=== PATIENT | male | born 1995 ===

== ENCOUNTER 2017-11-18 06:11 | Emergency (ER) | payer OTHER ==
[2017-11-18 06:19] VITALS: BMI 23.3
--- NOTE | 2017-11-18 06:37 | ED PDOC ---
Arrival/HPI <Alberta Sauceda - Last Filed: 11/18/17 12:55> - General Historian: Patient - History of Present Illness Time/Duration: Other (this morning) Symptom Onset: Gradual Symptom Course: Unchanged Activities at Onset: Light Context: Home <SamsonLowell - Last Filed: 11/21/17 09:27> - General Chief Complaint: Shortness Of Breath Time Seen by Provider: 11/18/17 06:34 - History of Present Illness Narrative History of Present Illness (Text): 11/18/17 06:34 Epifanio Cota is a 21 year old male, who denies any significant past medical history, who presents to the Emergency department accompanied by relative complaining of left-sided chest pain since this morning. Via relative acting as senior specialist, patient notes pain is worse with palpation of the area and movement. Patient also complaining of difficulty breathing. Patient denies any fever, chills, nausea, vomiting, diarrhea, urinary symptoms, back pain, neck pain, headache, dizziness, or any other complaints. (Lowell Davies) Past Medical History - Provider Review Nursing Documentation Reviewed: Yes - Psychiatric Hx Psychophysiologic Disorder: No Hx Substance Use: No - Anesthesia Hx Anesthesia: No Hx Anesthesia Reactions: No Hx Malignant Hyperthermia: No <Lowell Davies - Last Filed: 11/21/17 09:27> Family/Social History - Physician Review Nursing Documentation Reviewed: Yes Family/Social History: Unknown Family HX Smoking Status: Never Smoked Hx Alcohol Use: No Hx Substance Use: No <Lowell Davies - Last Filed: 11/21/17 09:27> Allergies/Home Meds <Alberta Sauceda - Last Filed: 11/18/17 12:55> <Lowell Davies - Last Filed: 11/21/17 09:27> Allergies/Adverse Reactions: Allergies No Known Allergies Allergy (Verified 11/18/17 06:23) Review of Systems - Physician Review All systems were reviewed & negative as marked: Yes - Review of Systems Constitutional: Normal. absent: Fevers Eyes: Normal ENT: Normal Respiratory: absent: Cough Cardiovascular: Chest Pain Gastrointestinal: Normal. absent: Abdominal Pain, Diarrhea, Nausea, Vomiting Genitourinary Male: Normal. absent: Dysuria, Frequency, Hematuria, Urinary Output Changes Musculoskeletal: Normal. absent: Back Pain, Neck Pain Skin: Normal. absent: Rash Neurological: Normal. absent: Headache, Dizziness Endocrine: Normal Hemo/Lymphatic: Normal Psychiatric: Normal <Lowell Davies - Last Filed: 11/21/17 09:27> Physical Exam Vital Signs Reviewed: Yes Temperature: Afebrile Blood Pressure: Normal Pulse: Regular Respiratory Rate: Normal Appearance: Positive for: Well-Appearing, Non-Toxic, Comfortable Pain Distress: None Mental Status: Positive for: Alert and Oriented X 3 - Systems Exam Head: Present: Atraumatic, Normocephalic Pupils: Present: PERRL Extroacular Muscles: Present: EOMI Conjunctiva: Present: Normal Mouth: Present: Moist Mucous Membranes Neck: Present: Normal Range of Motion Respiratory/Chest: Present: Clear to Auscultation, Good Air Exchange, Tender to Palpation (Tender to left chest wall). No: Respiratory Distress, Accessory Muscle Use Cardiovascular: Present: Regular Rate and Rhythm, Normal S1, S2. No: Murmurs Abdomen: Present: Normal Bowel Sounds. No: Tenderness, Distention, Peritoneal Signs Back: Present: Normal Inspection Upper Extremity: Present: Normal Inspection. No: Cyanosis, Edema Lower Extremity: Present: Normal Inspection. No: Edema Neurological: Present: GCS=15, CN II-XII Intact, Speech Normal Skin: Present: Warm, Dry, Normal Color. No: Rashes Psychiatric: Present: Alert, Oriented x 3, Normal Insight, Normal Concentration <Lowell Davies - Last Filed: 11/21/17 09:27> Vital Signs Temp Pulse Resp BP Pulse Ox 11/18/17 11:20 98.5 F 69 18 98/47 L 100 11/18/17 07:59 98.5 F 78 18 114/71 100 11/18/17 06:45 98.1 F 95 H 18 126/65 100 11/18/17 06:20 18 100 Medical Decision Making <Alberta Sauceda - Last Filed: 11/18/17 12:55> - EKG Interpretation Interpreted by ED Physician: Yes Type: 12 lead EKG - Transfer of Care Patient signed out to Dr:: masoud lees and re eval and dispo <Lowell Davies - Last Filed: 11/21/17 09:27> ED Course and Treatment: 11/18/17 07:00 Patient signed out to me by Dr. Davies. 11/18/17 11:[address]: Creator : Marco A Tovar MD FINDINGS: LUNGS: There is a large heterogeneous mass in the anteromedial aspect left upper lobe which appears to arise from the anterior mediastinum extend laterally into the left upper lung field. This lesion measures approximately 11.9 cm x 8.15 cm trans x 7.0 cm AP. The lesion exhibits areas of low attenuation extends from the prevascular space at high-level. Lesion appears to exert some mass effect left anterolateral border of the pulmonary trunk, paid such as proximal aspect of the left main pulmonary artery and left pulmonary vein. Findings are of uncertain etiology though differential diagnosis would include teratoma, lymphoma or thymoma. . Lesion of thyroid origin less likely as the thyroid gland exhibits location, size and enhancement pattern with no obvious substernal thyroid tissue seen. . MEDIASTINUM: As above. No significant hilar adenopathy. No evidence of significant precarinal or para tracheal adenopathy. Heart size is within range of normal. No significant pericardial effusion. The ascending thoracic aorta measures approximately 2.14 cm and descending thoracic aorta measures approximately 1.8 cm. Central airways are midline and patent. No endoluminal lesions are identified. PLEURA:No effusion or pneumothorax. BONES:No fracture. No destructive lesion. UPPER ABDOMEN:Note made of an incompletely visualized elliptical shaped cyst measuring 2.1 x 1.6 cm upper pole left kidney OTHER FINDINGS:None. IMPRESSION: Large mass lesion in the left anterolateral soto thorax which appears to arise from the anterior mediastinum and extend peripherally into the left upper lobe the lesion exhibits heterogeneous attenuation/ enhancement. Rule out teratoma, lymphoma or thymoma. . Thyroid origin lesion would be less likely as detailed above. See above discussion for additional details and findings. Findings discussed with Dr. Sauceda at approximately 10:05 a.m. with written down and read back verification. 11/18/17 11:[address] Cook at [facility] who agrees to patient in consultation. Provided patient and his family with contact info and emphasized to contact Dr. Cook for follow up [phone]. (Alberta Sauceda) 11/18/17 06:34 Impression: 21 year old male complaining of left-sided chest pain, worse with movement/ palpating the area, with difficulty breathing. Plan: -- EKG -- Chest X-ray -- Motrin -- Reassess and disposition Progress Notes: Reviewed EKG, NSR at 92 bpm. Sinus arrhythmia. No acute changes. (Lowell Davies) - Lab Interpretations Lab Results: 11/18/17 07:55 11/18/17 07:55 Lab Results 11/18/17 07:55: Sodium 138, Potassium 3.5 L, Chloride 102, Carbon Dioxide 24, Anion Gap 14, BUN 15, Creatinine 0.8, Est GFR ( Amer) > 60, Est GFR (Non- Af Amer) > 60, Random Glucose 120 H, Calcium 9.3, Total Bilirubin 0.7, AST 25, ALT 23, Alkaline Phosphatase 148 H, Total Protein 7.6, Albumin 4.3, Globulin 3.4 , Albumin/Globulin Ratio 1.3 11/18/17 07:55: WBC 11.2 H, RBC 4.38, Hgb 12.9 L, Hct 38.3 L, MCV 87.4, MCH 29.5 , MCHC 33.7, RDW 13.8, Plt Count 226, MPV 8.8, Gran % 80.8 H, Lymph % (Auto) 9.8 L, Crook % (Auto) 9.2 H, Eos % (Auto) 0.1 L, Baso % (Auto) 0.1, Gran # 9.05 H , Lymph # 1.1 L, Crook # 1.0 H, Eos # 0.0, Baso # 0.01 - RAD Interpretation Radiology Orders: 11/18/17 06:39 CHEST TWO VIEWS (PA/LAT) [RAD] Stat 11/18/17 07:32 CHEST W/CONTRAST [CT] Stat - Medication Orders Current Medication Orders: Discontinued Medications Ibuprofen (Motrin Tab) 400 mg PO ONCE STA Stop: 11/18/17 06:40 Last Admin: 11/18/17 06:51 Dose: 400 mg MAR Pain/Vitals Document 11/18/17 06:51 AD (Rec: 11/18/17 06:51 AD [id number]) Pain Reassessment Is This A Pain ReAssessment? No Presence of Pain Presence of Pain Yes Pain Scale Used Pain Scale Used Numeric Location Intensity 10 Scale Used Numeric Pain Behavior Facial Grimacing <Alberta Sauceda - Last Filed: 11/18/17 12:55> - Scribe Statement The provider has reviewed the documentation as recorded by the Scribe <Lowell Davies - Last Filed: 11/21/17 09:27> - Scribe Statement Lovely Jarrell Provider Scribe Attestation: All medical record entries made by the Scribe were at my direction and personally dictated by me. I have reviewed the chart and agree that the record accurately reflects my personal performance of the history, physical exam, medical decision making, and the department course for this patient. I have also personally directed, reviewed, and agree with the discharge instructions and disposition. (Lowell Davies) Disposition/Present on Arrival - Present on Arrival Any Indicators Present on Arrival: No - Disposition Have Diagnosis and Disposition been Completed?: Yes Disposition Time: 12:55 <Alberta Sauceda - Last Filed: 11/18/17 12:55> - Present on Arrival Any Indicators Present on Arrival: No History of DVT/PE: No History of Uncontrolled Diabetes: No Urinary Catheter: No History of Decub. Ulcer: No History Surgical Site Infection Following: None - Disposition Have Diagnosis and Disposition been Completed?: Yes Disposition Time: 07:00 <Lowell Davies - Last Filed: 11/21/17 09:27> - Disposition Diagnosis: Mediastinal mass Disposition: HOME/ ROUTINE Condition: GOOD Discharge Instructions (ExitCare): Chest Pain (ED) Print Language: YORUBA Additional Instructions: Call Dr Cook at [facility] [phone] Prescriptions: oxyCODONE/Acetaminophen [Percocet 5/325 mg Tab] 1 ea PO QID PRN #20 tab PRN Reason: Pain, Mild (1-3) Forms: [employer] (Ukrainian)
[2017-11-18 07:15] VITALS: RESP 18; O2SAT 100
[2017-11-18 08:02] VITALS: TEMP 98.5
[2017-11-18 08:05] LABS: BASO # 0.01 K/mm3 (0.0-2.0); BASO % 0.1 % (0.0-3.0); EOS % 0.1 % (1.5-5.0); GRAN # 9.05 (1.4-6.5); GRAN % 80.8 % (50.0-68.0); HEMATOCRIT 38.3 % (42.0-52.0); LYMPH # 1.1 (1.2-3.4); LYMPH % 9.8 % (22.0-35.0); MEAN CELL VOLUME 87.4 fl (80.0-105.0); MEAN CORPUSCULAR HEMOGLOBIN 29.5 pg (25.0-35.0); MEAN CORPUSCULAR HGB CONC 33.7 g/dl (31.0-37.0); MEAN PLATELET VOLUME 8.8 fl (7.0-11.0); MONO % 9.2 % (1.0-6.0); RED CELL DISTRIBUTION WIDTH 13.8 % (11.5-14.5); WHITE BLOOD COUNT 11.2 10^3/ul (4.5-11.0)
[2017-11-18 08:13] LABS: ALB/GLOB RATIO 1.3 (1.1-1.8); ALKALINE PHOSPHATASE 148 U/L (38-126); ALT/SGPT 23 U/L (7-56); AST/SGOT 25 U/L (17-59); BILIRUBIN,TOTAL 0.7 mg/dL (0.2-1.3); BLOOD UREA NITROGEN 15 mg/dL (7-21); CALCIUM 9.3 mg/dL (8.4-10.5); CARBON DIOXIDE 24 mmol/L (21-33); CHLORIDE 102 mmol/L (98-107); GFR AFRICAN-AMERICAN > 60; GLUCOSE,RANDOM 120 mg/dL (70-110); POTASSIUM 3.5 mmol/L (3.6-5.0); SODIUM 138 mmol/L (132-148); TOTAL PROTEIN 7.6 g/dL (5.8-8.3)
[2017-11-18] MEDS ORDERED: Iohexol 300 100 ML IJ ONE ×2 (08:23)
--- NOTE | 2017-11-18 10:21 | CT ---
PROCEDURE: CT scan chest dated 11/18/2017. HISTORY: Lymphadenopathy. COMPARISON: Comparison made with chest radiograph 11/18/2017 at 0721 hours TECHNIQUE: Contiguous helical/transaxial images were obtained through the chest with intravenous contrast enhancement. Sagittal and coronal reconstructions were performed. IV contrast: 100 cc Omnipaque 300 contrast Radiation dose (DLP): 245.86 mGy-cm. This CT exam was performed using one or more of the following dose reduction techniques: Automated exposure control, adjustment of the mA and/or kV according to patient size, and/or use of iterative reconstruction technique. . FINDINGS: LUNGS: There is a large heterogeneous mass in the anteromedial aspect left upper lobe which appears to arise from the anterior mediastinum extend laterally into the left upper lung field. This lesion measures approximately 11.9 cm x 8.15 cm trans x 7.0 cm AP. The lesion exhibits areas of low attenuation extends from the prevascular space at high-level. Lesion appears to exert some mass effect left anterolateral border of the pulmonary trunk, paid such as proximal aspect of the left main pulmonary artery and left pulmonary vein. Findings are of uncertain etiology though differential diagnosis would include teratoma, lymphoma or thymoma. . Lesion of thyroid origin less likely as the thyroid gland exhibits location, size and enhancement pattern with no obvious substernal thyroid tissue seen. . MEDIASTINUM: As above. No significant hilar adenopathy. No evidence of significant precarinal or para tracheal adenopathy. Heart size is within range of normal. No significant pericardial effusion. The ascending thoracic aorta measures approximately 2.14 cm and descending thoracic aorta measures approximately 1.8 cm. Central airways are midline and patent. No endoluminal lesions are identified. PLEURA: No effusion or pneumothorax. BONES: No fracture. No destructive lesion. UPPER ABDOMEN: Note made of an incompletely visualized elliptical shaped cyst measuring 2.1 x 1.6 cm upper pole left kidney OTHER FINDINGS: None. IMPRESSION: Large mass lesion in the left anterolateral soto thorax which appears to arise from the anterior mediastinum and extend peripherally into the left upper lobe the lesion exhibits heterogeneous attenuation/ enhancement. Rule out teratoma, lymphoma or thymoma. . Thyroid origin lesion would be less likely as detailed above. See above discussion for additional details and findings. Findings discussed with Dr. Sauceda at approximately 10:05 a.m. with written down and read back verification.
[2017-11-18 11:27] VITALS: BP 98/47; PULSE 69
--- NOTE | 2017-11-18 12:05 | RAD ---
HISTORY: fall COMPARISON: No prior. TECHNIQUE: Chest PA and lateral FINDINGS: LUNGS: No pulmonary infiltrate. Abnormal contour of left superior heart border consistent with anterior mediastinal mass as demonstrated on chest CT examination of the same date. PLEURA: No significant pleural effusion identified. No pneumothorax apparent. CARDIOVASCULAR: Normal heart size. Abnormal contour as above consistent with anterior mediastinal mass. OSSEOUS STRUCTURES: No significant abnormalities. VISUALIZED UPPER ABDOMEN: Normal. OTHER FINDINGS: None. IMPRESSION: Anterior mediastinal mass consistent with finding on chest CT examination of the same date. No pulmonary infiltrate.
--- NOTE | 2017-11-19 09:30 | CARD ---
APPROVED REPORT EKG Measurement Heart [id number] <Conclusion> Normal sinus rhythm with sinus arrhythmia Small q waves 2,3,F PWNL
== END 2017-11-18 11:20 | disposition home or self-care (01) ==
LOC: EDBD 06:11 → ED 06:11
DX: R22.2 Localized swelling, mass and lump, trunk (principal)
CPT/HCPCS: 71020; 71260; 80053; 85025; 93005; 99284; Q9967